=== PATIENT | male | born 1965 | race African-American/Black ===

== ENCOUNTER 2017-04-24 23:20 | Emergency (ER) | payer OTHER ==
[~2017-04-24] VITALS: Ht 185.4 cm; Wt 75.0 kg
[2017-04-24 23:39] VITALS: BP 156/97; PULSE 95; RESP 16; TEMP 98.6; O2SAT 100
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
[2017-04-25] MEDS ORDERED: ACETAMINOPHEN 325 MG TAB PO ONE (01:15)
[2017-04-25] MEDS ORDERED: CEPHALEXIN MONOHYDRATE 500 MG CAP PO ONE (01:15)
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
== END 2017-04-25 03:12 ==
LOC: NEPC 23:20
DX: M25.531 Pain in right wrist (principal); S09.90XA Unspecified injury of head, initial encounter; M54.2 Cervicalgia; S00.81XA Abrasion of other part of head, initial encounter; F17.200 Nicotine dependence, unspecified, uncomplicated; Z87.19 Personal history of other diseases of the digestive system; Y04.0XXA Assault by unarmed brawl or fight, initial encounter
CPT/HCPCS: 70450; 72125; 73110